=== PATIENT | male | born 1970 | race Caucasian/White ===

== ENCOUNTER 2020-03-03 22:14 | Emergency (ER) | payer OTHER, SELFPAY ==
[2020-03-03 22:15] VITALS: BP 132/87; PULSE 89; RESP 18; TEMP 36.3; O2SAT 96; BMI 28.8
--- NOTE | 2020-03-03 23:16 | RAD_ITS ---
STUDY: X-RAY - LUMBAR SPINE REASON FOR EXAM: Male, 49 years old. Back pain after fall. TECHNIQUE: 3 view(s) of the lumbar spine were obtained. COMPARISON: None FINDINGS: Straightening of the normal lumbar lordosis compatible with muscle spasm or patient positioning. There is no substantial scoliosis. There is a normal alignment of the vertebrae. Normal vertebral bodies. Small marginal osteophytes L5. Normal disc space heights. The soft tissue structures are unremarkable. RAD/Lumbar Spine 2 or 3 Views IMPRESSION: No fracture identified in the lumbar spine. Electronically Signed: Tristen Guzman MD at 0:08 EDT , Service support ,
--- NOTE | 2020-03-03 23:16 | RAD_ITS ---
STUDY: X-RAY - LEFT FOOT CLINICAL: Male, 49 years old. Fall. TECHNIQUE: 3 view(s) of the foot. COMPARISON: None. FINDINGS: Normal talus, calcaneus, and tarsal bones. Normal visualized subtalar, talonavicular, calcaneocuboid, tarsal and tarsometatarsal articulations. Normal metatarsi. Normal metatarsophalangeal joint of the great toe. Normal tibial and fibular sesamoid bones. Normal interphalangeal joint of the great toe. Normal phalanges of the great toe. Normal second through fifth metatarsophalangeal joints. Normal interphalangeal joints and phalanges of the lesser toes. The soft tissue structures are unremarkable. RAD/Foot min 3 Views IMPRESSION: Normal x-ray examination of the foot. Electronically Signed: Tristen Guzman MD at 0:11 EDT , Service support ,
--- NOTE | 2020-03-03 23:16 | RAD_ITS ---
STUDY: X-RAY - PELVIS AND LEFT HIP REASON FOR EXAM: Male, 49 years old. Fall, twisting leg. TECHNIQUE: 3 views of the pelvis and hip. COMPARISON: None. FINDINGS: There is a non-specific bowel gas pattern. Normal visualized soft tissue structures. Normal bilateral iliac wings, sacroiliac joints and visualized sacrum. Normal bilateral superior and inferior pubic rami. Normal pubic symphysis. Normal bilateral ischial tuberosities. Normal visualized right femoral head. Normal acetabulum. Normal hip joint. Probable phleboliths in the inferior pelvis. Left hip grossly normal. RAD/HIP, UNI W/ Pelvis 2-3 Views IMPRESSION: Normal x-ray examination of the pelvis and hip. Electronically Signed: Tristen Guzman MD at 0:10 EDT , Service support ,
--- NOTE | 2020-03-03 23:19 | ED.DCSUM_ITS ---
- ER Visit Summary Date of Service: 03/03/20 Chief Complaint: Back pain History of Present Illness: The patient is a 49 M presenting with back pain. Patient states on he rolled his ankle and nearly fell. He then states that he did fall to the ground on his left side. He has been taking ibuprofen at home for his ankle. He states his back pain has been progressively worsening. He saw his chiropractor today. He denies fever, chest pain, shortness of breath, other symptoms. Denies bowel or bladder incontinence. He is able to ambulate with pain. Physical Examination: Vitals are stable. Patient is afebrile. Alert no acute distress. HEENT exam is unremarkable. Neck is supple. Lungs are clear and equal bilaterally. Heart is regular rate and rhythm. Abdomen is soft nontender nondistended. Back: Left paraspinal lumbar muscle tenderness, no midline tenderness Extremities left lateral ankle tenderness and left lateral foot tenderness with mild ecchymosis. Normal pulses. Skin is warm and dry. No focal neurologic deficit. Remainder of exam is unremarkable. Emergency Department Course and Treatment: Patient given morphine, Zofran IM. Left foot and ankle x-ray showed no acute process. Lumbar spine x-ray and left hip x-ray showed no fracture. Patient feels improved following medication. He is given prescription for short course of [place]. Advised to follow-up with primary care physician. Advised return to ED for worsening complaints. Disposition: Discharge home Impression: Lumbar strain This note was generated with [employer] dictation software. It may contain incorrect words, spelling, and punctuation that were not noted in review of the chart prior to signing ED Disposition - Plan for ED Patient: Instructions: ED LUMBAR SPRAIN/STRAIN Prescriptions: Hydrocodone Bitart/Apap 5-325 [[place] 5MG-325MG] 1 tab PO Q6H PRN PRN 3 Days #10 tab PRN Reason: Pain Prescription Printed Referrals: Gautam Mcclellan MD [Primary Care Provider] -
[2020-03-03] MEDS: Ondansetron 4 MG/2 ML Vial IM (23:23)
[2020-03-03] MEDS: morphine 8 MG/ML Syringe IM (23:23)
--- NOTE | 2020-03-03 23:35 | RAD_ITS ---
STUDY: X-RAY - LEFT ANKLE REASON FOR EXAM: Male, 49 years old. Fall. TECHNIQUE: 3 view(s) of the ankle. COMPARISON: None. FINDINGS: Normal visualized distal tibia and fibula. Normal medial and lateral malleoli. Normal tibiotalar articulation and ankle mortise. Normal visualized talus and calcaneus. The visualized subtalar, talonavicular, calcaneocuboid and tarsal articulations are normal. The soft tissue structures are unremarkable. RAD/Ankle min 3 Views IMPRESSION: Normal x-ray examination of the ankle. Electronically Signed: Tristen Guzman MD at 0:10 EDT , Service support ,
--- NOTE | 2020-03-04 00:24 | DCINST.ED_ITS ---
ED Disposition - Plan for ED Patient: Instructions: ED LUMBAR SPRAIN/STRAIN Prescriptions: Hydrocodone Bitart/Apap 5-325 [[place] 5MG-325MG] 1 tablet PO Q6H PRN PRN 3 Days #10 tablet PRN Reason: Pain Referrals: Gautam Mcclellan MD [Primary Care Provider] -
--- NOTE | 2020-03-04 00:26 | DCINST.ED_ITS ---
ED Disposition - Plan for ED Patient: Instructions: ED LUMBAR SPRAIN/STRAIN Prescriptions: Hydrocodone Bitart/Apap 5-325 [[place] 5MG-325MG] 1 tab PO Q6H PRN PRN 3 Days #10 tab PRN Reason: Pain Prescription Printed Referrals: Gautam Mcclellan MD [Primary Care Provider] -
[2020-03-04 00:41] VITALS: BP 130/82; PULSE 82; RESP 16; O2SAT 98
== END 2020-03-04 00:47 | disposition home or self-care (01) ==
PROVIDERS: Emergency Provider Emergency Medicine; PCP Family Medicine
DX: S39.012A Strain of muscle, fascia and tendon of lower back, initial encounter (principal); X50.1XXA Overexertion from prolonged static or awkward postures, initial encounter
CPT/HCPCS: 72100; 73502; 73610; 73630; 96372; 99282; J2405

== ENCOUNTER 2020-03-04 21:05 | Emergency (ER) | payer OTHER, SELFPAY ==
[2020-03-03 22:15] VITALS: BMI 28.8
[2020-03-04 21:06] VITALS: BP 141/105; PULSE 89; RESP 17; TEMP 36.8; O2SAT 96; BMI 28.8
[2020-03-04] MEDS: Morphine 4 MG/ML Syringe IV ×2 (21:45→22:52)
[2020-03-04] MEDS: Ketorolac 15 MG/ML Vial IV (21:46)
[2020-03-04] MEDS: Ondansetron 4 MG/2 ML Vial IV (21:46)
--- NOTE | 2020-03-04 21:55 | CT_ITS ---
STUDY: CT LUMBAR SPINE WITHOUT CONTRAST REASON FOR EXAM: Male, 49 years old. Back pain. RADIATION DOSAGE (If Supplied By Facility): CTDIvol = ( 14.03 ) mGy, DLP = ( 362.03 ) mGycm TECHNIQUE: The patient was scanned in a multi detector CT scanner. High resolution transaxial imaging was performed. Images were obtained through the lumbar spine. Sagittal and coronal images were reconstructed. Individualized dose optimization techniques were used for this CT. COMPARISON: None FINDINGS: There is no evidence of fracture or dislocation in the lumbar spine. The vertebral body heights are well-maintained. There are shallow central disc herniations at L3/L4 and L4/L5. The visualized paraspinal soft tissues are within normal limits. CT/Spine Lumbar without Contrast IMPRESSION: No fracture or dislocation in the lumbar spine. Shallow central disc herniations at L3/L4 and L4/L5. If indicated, further evaluation with MRI can be performed. Electronically Signed: Preet Frias, at 22:37 EDT Tel , Service support ,
--- NOTE | 2020-03-04 22:45 | ED.VIS.GEN ---
History of Present Illness Chief Complaint: Back Informant: Patient Onset: Days Context: Gradual Onset Timing: Intermittent Current Severity: Moderate Maximum Severity: Severe Narrative: Patient is a 49-year-old male that presents to the emergency department with left low back pain into his left posterior leg. The patient was actually seen here yesterday. He had an injury a few days before and then was having worsening back pain. He was prescribed Flexeril and prednisone at his primary care today. He was prescribed D Hanis last night and took 1 last night, but did not take any today because he was worried about mixing the medications. He states his pain worsened today. He describes it as a burning pain down his posterior left leg. He has had no numbness in his groin. He denies any difficulty with bowel or bladder. He is still able to ambulate. Prior similar symptoms: No Recent Illness/Hospitalization: No Past Medical History - Allergies and Home Meds Allergies/Adverse Reactions: Allergies No Known Allergies Allergy (Verified 03/04/20 21:06) Primary Care Physician: Gautam Mcclellan MD [Primary Care Provider] - Prior records reviewed: Yes Past Medical History: None Surgical History: no surgical history Smoking Status: Former smoker Review of Systems General: Denies: Chills, Fever, Sweats Eyes: Denies: Visual changes - bilaterally, Diplopia ENT: Denies: Rhinorrhea, Sore throat Cardiovascular: Denies: Chest pain, Palpitations Respiratory: Denies: Dyspnea, Cough, Dyspnea on exertion Gastrointestinal: Denies: Abdominal pain, Nausea, Vomiting, Diarrhea, Melena, Hematochezia Genitourinary: Denies: Dysuria, Hematuria, Frequency Musculoskeletal: Denies: Back pain, Extremity Pain Skin: Denies: Rash, Wounds Neurological: Denies: Headache, Weakness, Numbness Physical Exam Vital Signs/Narrative: Vital Signs Temp Pulse Resp BP Pulse Ox 03/04/20 21:06 98.2 F 89 17 141/105 H 96 Inital Vital Signs reviewed: Yes General: Well nourished, Well developed, No Acute Distress Head: Normocephalic, Atraumatic Eyes: Perrl, EOMI ENT: Moist mucous membranes, No rhinorrhea Neck: Supple, Nontender Cardiovascular: Regular rate, Regular rhythm, No murmurs Respiratory: No distress, CTA bilaterally, Chest nontender Abdomen: Soft, Nontender, Nondistended, Normal bowel sounds Back: Nontender, Normal Inspection Extremities: Nontender, No edema Skin: Normal color, No rash Neurological: Alert, Oriented x3, Cranial nerves II-XII grossly intact, Normal Strength, Normal Sensation Psychological: Normal affect, Normal Mood Diagnostic/Tx/Re-eval Clinical Impression(s) from Imaging Studies Lumbar Spine CT 03/04/20 21:55 IMPRESSION: No fracture or dislocation in the lumbar spine. Shallow central disc herniations at L3/L4 and L4/L5. If indicated, further evaluation with MRI can be performed. Electronically Signed: Preet Frias, at 22:37 EDT Tel , Service support , - Medical Decision Making The patient symptoms are consistent with lumbar radiculopathy. He has no red flag symptoms. Straight leg raise creates pain, but no paresthesia. His pulses are normal. His reflexes are normal. His gait is stable. His abdomen is benign. I did review his prior images which are unremarkable. With his increasing pain, I did obtain CT to rule out compression fracture not visualized. This was unremarkable. With analgesics, he is feeling markedly improved. At this point, I do not feel he requires emergent MRI. He is already on appropriate medications. He was counseled on following up with his primary care physician and red flag symptoms to return to. He will be discharged home. Impression 1. Lumbar radiculopathy ED Disposition - Plan for ED Patient: Instructions: ED LUMBAR RADICULOPATHY Referrals: Gautam Mcclellan MD [Primary Care Provider] -
[2020-03-04 23:13] VITALS: BP 124/74; PULSE 65; RESP 18; O2SAT 98
== END 2020-03-04 23:13 | disposition home or self-care (01) ==
PROVIDERS: Emergency Provider Emergency Medicine; PCP Family Medicine
DX: M51.16 Intervertebral disc disorders with radiculopathy, lumbar region (principal); Z87.891 Personal history of nicotine dependence
CPT/HCPCS: 72131; 96374; 96375; 96376; 99284; A4216; J2405